=== PATIENT | female | born 2000 | race Caucasian/White ===

== ENCOUNTER 2018-05-03 06:47 | Day surgery (SDC) | payer OTHER ==
[~2018-05-03 06:47] MED LIST: ALLEGRA-D 12 H1 EACH PO
== END 2018-05-03 13:07 | disposition home or self-care (01) ==
LOC: CIR.AMB 06:47
DX: M71.331 Other bursal cyst, right wrist (principal)

== ENCOUNTER 2020-01-01 12:55 | Emergency (ER) | payer OTHER ==
[~2020-01-01] VITALS: Ht 170.2 cm; Wt 47.6 kg
== END 2020-01-01 22:44 | disposition home or self-care (01) ==
LOC: ER 12:55
DX: N83.291 Other ovarian cyst, right side (principal)

== ENCOUNTER 2024-02-12 11:19 | Emergency (ER) | payer OTHER ==
[~2024-02-12] VITALS: Ht 170.2 cm; Wt 48.5 kg
[2024-02-12] MEDS ORDERED: SYNTHROID50 MCG (11:53)
[2024-02-12 16:58] LABS: PH,URINE 5.5 (5.0-8.0); URINE APPEARANCE Cloudy; URINE BILIRRUBIN Negative (NEGATIVE); URINE BLOOD Small; URINE COLOR Yellow; URINE GLUCOSE Negative (NEGATIVE); URINE LEUKOCYTE Large; URINE NITRATE Negative; URINE PROTEIN Negative (NEGATIVE)
[2024-02-12 17:02] LABS: URINE BACTERIA 168.8 uL (0.0-1933); URINE RBC 215.7 uL (0.0-20.8); URINE WBC 269.1 uL (0.0-23.2)
[2024-02-12 18:34] LABS: URINE MUCUS NEGATIVE
[2024-02-12 18:35] LABS: URINE CRYSTALS NEGATIVE /HPF
== END 2024-02-12 19:02 | disposition home or self-care (01) ==
LOC: ER 11:20
PROVIDERS: General Practice
DX: N39.0 Urinary tract infection, site not specified (principal)